=== PATIENT | male | born 1990 | race African-American/Black ===

== ENCOUNTER 2021-11-06 06:15 | Emergency (ER) | payer SELFPAY ==
[2021-11-06] MEDS ORDERED: predniSONE 20 MG TAB ONE (06:39)
[2021-11-06] MEDS ORDERED: Ventolin HFA Inhaler 60 PUFF INHALER ONE (06:50)
== END 2021-11-06 06:49 | disposition home or self-care (01) ==
LOC: CSHERS 06:15
DX: J45.909 Unspecified asthma, uncomplicated (principal)
CPT/HCPCS: J7512

== ENCOUNTER 2022-04-07 03:56 | Emergency (ER) | payer OTHER, SELFPAY | END 2022-04-07 04:23 | disposition home or self-care (01) | LOC: CSHERS 03:56 | DX: J34.89 Other specified disorders of nose and nasal sinuses (principal); R09.81 Nasal congestion; Z20.822 Contact with and (suspected) exposure to COVID-19 | CPT/HCPCS: 99283; U0003; U0005 ==

== ENCOUNTER 2022-10-07 15:04 | Emergency (ER) | payer OTHER ==
[2022-10-07 15:51] LABS: #Basophils 0.1 10x3/uL (0.0-0.2); #Eosinphils 0.5 10x3/uL (0.0-0.5); #Monocytes 0.7 10x3/uL (0.0-1.1); %Basophils 1.1 % (0.0-2.0); %Eosinophils 7.4 % (0.0-6.0); %Lymphocytes 19.4 % (18.0-47.0); %Monocytes 10.2 % (0.0-10.0); %Neutrophils 61.7 % (40.0-75.0); Hemoglobin 15.6 g/dL (13.5-17.5); Mean Corpuscular HGB CONC 35.9 g/dL (32.0-36.0); Mean Corpuscular Hemoglobin 30.2 pg (27.0-33.0); Mean Corpuscular Volume 84.3 fl (81.2-95.1); Mean Platelet Volume 10.9 fl (7.4-10.4); Platelet Count 197 10x3/uL (150-450); RBC Distribution Width 12.7 % (11.5-14.5); Red Blood Cell (RBC) Count 5.16 10x6/uL (4.32-5.72); White Blood Cell (WBC) Count 6.5 10x3/uL (3.5-10.5)
[2022-10-07 16:02] LABS: ALT (SGPT) 12 U/L (8-55); AST (SGOT) 15 U/L (5-34); Albumin 4.2 g/dL (3.5-5.0); Alkaline Phosphatase 58 U/L (40-110); Anion Gap 14 mmol/L (10-20); BUN (Urea Nitrogen) 12 mg/dL (8.9-20.6); Bilirubin, Total 0.3 mg/dL (0.2-1.2); Calc. Creatinine Clearance 0 mL/min (70-130); Calcium 8.8 mg/dL (7.8-10.44); Carbon Dioxide 22 mmol/L (22-29); Chloride 108 mmol/L (98-107); Estimated GFR 106; Globulin 2.7 g/dL (2.4-3.5); Glucose 108 mg/dL (70-105); Potassium 4.2 mmol/L (3.5-5.1); Protein, Total 6.9 g/dL (6.0-8.3); Sodium 140 mmol/L (136-145)
[2022-10-07] MEDS ORDERED: Albuterol Sulfate 2.5 mg/3 ml Neb ONE (16:31)
[2022-10-07] MEDS ORDERED: Ipratropium Bromide 2.5 ml Neb ONE (16:31)
[2022-10-07] MEDS ORDERED: Dexamethasone 10 MG/ML VIAL ONE (16:32)
== END 2022-10-07 18:16 | disposition home or self-care (01) ==
LOC: CSHERS 15:04
DX: J18.9 Pneumonia, unspecified organism (principal); Z20.822 Contact with and (suspected) exposure to COVID-19
CPT/HCPCS: 36415; 71045; 80053; 84484; 85025; 93005; J1100; J7611; U0003; U0005